=== PATIENT | male | born 1945 | race Caucasian/White ===

== ENCOUNTER 2024-04-04 10:55 | Observation (INO) ==
--- NOTE | 2024-04-04 11:07 | ED Physician Documentation ---
History of Present Illness Stated complaint Stated Complaint: SOA Chief complaint Chief Complaint: Resp Additonal information Additional information: 78-year-old male with history of pneumothorax, hernia repair presents with shortness of breath. He states he was feeling well until about 10:30 AM today when he abruptly developed left-sided chest tightness and shortness of breath, arriving with hypoxia to the mid 80s, placed on a nonrebreather and now satting mid 90s. He had no symptoms before this. No fevers, chills, back or flank or abdominal pain, leg swelling or leg pain. No anticoagulation. This feels somewhat similar to a distant pneumothorax. Spouse at bedside corroborating. Chest pain is improving. Review of Systems ROS Constitutional: no fever, no chills Eyes: no visual disturbance, no discharge Ears, Nose, Mouth, Throat: no rhinorrhea, no sore throat Cardiovascular: +chest pain, no palpitations Respiratory: no cough, +shortness of breath Gastrointestinal: no abdominal pain, no vomiting, no diarrhea Genitourinary: no dysuria, no hematuria Musculoskeletal: no back pain, no neck stiffness Skin: no rash, no wound Neurological: no focal weakness, no focal numbness Meds/Allgy Home Medications Ambulatory Orders Medication Instructions Recorded Confirmed cholecalciferol (vitamin D3) 1,250 50,000 units PO AC 08/30/15 04/04/24 mcg (50,000 unit) capsule glucosamine 467 mg-chondroitin msm 1 ea PO DAILY 09/02/15 04/04/24 no.6 438 mg-manganes 0.7 mg capsule vitamin E (dl, acetate) 450 mg 1,000 unit PO DAILY 09/02/15 04/04/24 (1,000 unit) capsule Allergies Allergies Allergy/AdvReac Type Severity Reaction Status Date / Time No Known Drug Allergies Allergy Verified 04/04/24 11:19 [facility] Medical History Medical History (Updated 04/04/24 @ 12:49 by Charles Santana MD) Left rib fracture Hx of pneumothorax Social History Social History Smoking Status: Former smoker If you are a former smoker, when did you quit? (Date/Year): 1971 How many cigarettes a day do you smoke? (20 cigarettes=1 Pk): 2 Do you dip or chew tobacco?: No Do you vape?: No Relationship: Spouse Level: Independent Do you feel safe in your home environment?: Yes Suffered physical, verbal, emotional, or financial abuse?: No ETOH Use: Beer Frequency: Daily Number of Amount/day: 6 Exam Exam Const: Dyspneic appearing with tachypnea to low 20s, non toxic appearing; calm, conversant, pleasant; able to speak in moderate sentences on nonrebreather Eyes: PERRLA, EOMI ENT: mucous membranes moist Neck: supple, non-tender Resp: tachypneic as above to low 20s, decreased breath sounds left side, clear to auscultation right side Card: regular rate and rhythm, no murmurs Abd: non tender diffusely, no rigidity or rebound or guarding Back: no T or L spine tenderness, no CVA tenderness bilaterally Extrem: no deformities, no swelling bilateral lower extremities Neuro: ANOx4, chainstitch pants outseamer grossly intact, grossly intact sensation and strength all extr emities Skin: no rash, warm and dry Results Vitals Vitals: Vital Signs - 24 hr 04/04/24 11:05 04/04/24 11:27 04/04/24 11:44 Temperature 36.0 C L Temperature Source Temporal Artery Scan Pulse Rate 120 H 117 H Respiratory Rate 42 H 22 20 Blood Pressure 181/108 H 170/102 H O2 Saturation 76 L 97 99 Oxygen Delivery Method O2 Source Room air Non-rebreather mask Room air If not protocol: Oxygen Flow, liters/minute 15 Pain Intensity 8 6 6 04/04/24 11:46 04/04/24 11:50 04/04/24 11:55 Temperature Temperature Source Pulse Rate 95 H Respiratory Rate 20 Blood Pressure 150/90 H O2 Saturation 100 Oxygen Delivery Method Non-Rebreather O2 Source Nasal cannula If not protocol: Oxygen Flow, liters/minute 15 Pain Intensity 0 10 04/04/24 12:47 04/04/24 13:00 04/04/24 13:07 Temperature Temperature Source Pulse Rate 90 96 H Respiratory Rate 20 16 Blood Pressure 160/85 H 144/83 H O2 Saturation 100 100 Oxygen Delivery Method O2 Source Nasal cannula Nasal cannula If not protocol: Oxygen Flow, liters/minute 2 2 Pain Intensity 0 0 0 04/04/24 13:30 04/04/24 14:00 Temperature Temperature Source Pulse Rate 89 70 Respiratory Rate 23 20 Blood Pressure 138/81 H 126/71 O2 Saturation 98 99 Oxygen Delivery Method O2 Source Nasal cannula Nasal cannula If not protocol: Oxygen Flow, liters/minute 2 2 Pain Intensity 2 0 Oxygen O2 Source Nasal cannula Labs Labs: Laboratory Tests 04/04/24 04/04/24 11:20 11:50 WBC 5.8 RBC 4.86 Hgb 16.4 Hct 49.0 MCV 100.8 H MCH 33.7 H MCHC 33.5 RDW 12.5 Plt Count 211 MPV 9.8 Neut # (Auto) 3.3 Lymph # (Auto) 1.6 [place] # (Auto) 0.7 Eos # (Auto) 0.1 Baso # (Auto) 0.1 Absolute Nucleated RBC 0.00 Nucleated RBC % 0.0 VBG pH 7.288 L VBG pCO2 59.1 H VBG pO2 46.0 VBG HCO3 27.7 VBG Total CO2 29.5 H VBG O2 Saturation 78.6 VBG Base Excess -0.6 Sodium 139 Potassium 3.9 Chloride 102 Carbon Dioxide 30 Anion Gap 7.0 BUN 15 Creatinine 0.9 Estimated GFR (MDRD) 82 L Glucose 186 H Calcium 9.2 Total Bilirubin 0.8 AST 48 H ALT 32 Alkaline Phosphatase 48 Troponin I High Sens 5.5 Total Protein 7.9 Albumin 4.2 Globulin 3.7 Albumin/Globulin Ratio 1.1 Lipase 37 Nasal Influenza B PCR NOT DETECTED Nasal Influenza A PCR NOT DETECTED Nasal RSV (PCR) NOT DETECTED Nasal SARS-CoV-2 (PCR) NOT DETECTED PD Medical Decision Making ED course ED course: This patients presentation is most suggestive of pneumothorax, though I have considered broad differential including not limited to pulmonary embolism, pneumonia, ACS, symptomatic anemia, among others. I am immediately obtaining chest x-ray, holding positive pressure pending this, will obtain EKG, CBC, CMP, troponin, viral swab and will closely reassess. EKG shows probable sinus tachycardia with poor baseline, though atrial fibrillation possible, without clear acute ischemia or immediately concerning interval prolongation. I suspect this is secondary to pneumothorax. Labs: VBG with respiratory acidosis. CBC grossly reassuring, no anemia or leukocytosis or thrombocytopenia. CMP with hyperglycemia, mild AST elevation without ALT or alk phos or bilirubin elevation, no abdominal pain or tenderness. Lipase reassuring. Troponin WNL. Imaging: I agree with radiology reads of imaging on my independent review of imaging. CXR: "FINDINGS: Surgical changes and devices: None. Lungs and pleura: Large left-sided pneumothorax. No pleural effusions. No consolidation. Mediastinum: Mediastinal contours appear normal. No significant mediastinal shift. Heart size is normal. Bones and chest wall: No suspicious bony lesions. Overlying soft tissues appear unremarkable. IMPRESSION: Large left-sided pneumothorax. Findings telephoned to Dr. Chakraborty on 04/04/2024 at 1205 hours. Reviewed by: Nicci Sadler MD, PhD on 04/04/2024 12:06 PM PST" --- PROCEDURE: Procedure Note: Chest Tube Insertion Indication: left pneumthorax Note patient verbally consented but requeste spouse also in room sign. Patient consented for procedure. Timeout performed at 1157. Patient given 50mcg IV fentanyl. The patient was placed in the appropriate position. Landmarks identified. Full sterile technique used. The area was prepped and draped in the usual sterile fashion. Anesthesia was obtained with 20mL of 1% lidocaine with epinephrine in a plane block, with no blood on aspiration prior to injection. A scalpel was used to make a skin incision. A trocar chest tube of roughly 10Fr was inserted with return of immediate air, with immediate symptom improvement. The chest tube was attached to an underwater seal apparatus and attached to negative pressure. The chest tube was sutured in place and secured with a dressing placed over the site. Tachycardia improved. NRB remains in place. Patient feels improvement in symptoms. The patient tolerated the procedure well. A CXR was ordered. --- Note fentanyl given for pain, not procedural sedation. Patient fully awake throughout procedure. Viral swab negative. Repeat CXR: clear improvement in L PTX with chest tube placed. I spoke with Dr. Santana, reviewing case; he kindly agrees to admit. CT pending. Patient stable, comfortable on admission, clearly improved. Additional radiology reads returned: CXR read by radiology: "FINDINGS: Surgical changes and devices: The left chest tube is present, with tip at the lateral lung border Lungs and pleura: Decreased left pneumothorax. Triangular opacity is seen in the left lower lobe. Mediastinum: Normal heart size Bones and chest wall: Left upper rib deformities, age indeterminate. IMPRESSION: Decreased left pneumothorax following chest tube placement. Triangular opacity in the left lower lobe may represent atelectasis or airspace disease. Consider future imaging surveillance to assess for resolution. Reviewed by: Pk Guerra MD on 04/04/2024 2:20 PM PST" CT chest without contrast: "FINDINGS: Image quality: Diagnostic. Chest wall and lower neck: No thyroid nodule which requires sonographic follow up. No axillary or supraclavicular adenopathy by size. Lungs and pleura: Status post left-sided chest tube placement. Small residual left-sided pneumothorax, improved compared to prior. Left lower lobe focal area of atelectasis or consolidation. Mild emphysematous changes, most pronounced within the lower lobes posteriorly. No pleural effusions. . Mediastinum: Heart size is normal. Severe coronary artery calcifications. No pericardial effusion. No large vessel abnormality. Atherosclerotic vascular calcifications. No mediastinal adenopathy by size criteria. Bones: No aggressive osseous abnormality. Upper Abdomen: Unremarkable. IMPRESSION: 1.Significant improvement in left-sided pneumothorax status post chest tube placement. There is small residual pneumothorax. 2.More focal area of atelectasis or consolidation within the left lower lobe, recommend follow-up CT chest in 3 months to assess for resolution and exclude underlying neoplasm. Reviewed by: Braulio Aaron MD on 04/04/2024 2:11 PM PST" CRITICAL CARE TIME: outside of procedures, I spent 50 minutes assessing, reassessing, resuscitating this patient, speaking with family and consultants, and interpreting studies and documentation, in the setting of large, symptomatic left pneumothorax. Discharge Plan Discharge Patient Disposition: 66 [facility] DC/Xfer Condition: Stable Clinical Impression: Pneumothorax Interventions: ED Admission Assessment Last Done: 04/04/24 14:30
[2024-04-04 11:26] LABS: VBG BASE EXCESS -0.6 mmol/L (-2 - +2); VBG HCO3 27.7 mmol/L (23-28); VBG OXYGEN SATURATION 78.6 % (60-80); VBG PCO2 59.1 mmHg (41-51); VBG PH 7.288 (7.31-7.41); VBG TOTAL CO2 29.5 mmol/L (24-29)
[2024-04-04 11:27] LABS: BASOPHILS # (AUTO) 0.1 10^3/uL (0.0-0.1); EOSINOPHILS # (AUTO) 0.1 10^3/uL (0.0-0.7); EOSINOPHILS % (AUTO) 1.7 %; HGB - HEMOGLOBIN 16.4 g/dL (14.0-18.0); LYMPHOCYTES # (AUTO) 1.6 10^3/uL (1.5-3.5); MEAN CORPUSCULAR HEMOGLOBIN 33.7 pg (27.0-31.0); MEAN CORPUSCULAR HGB CONC 33.5 g/dL (32.0-36.0); MEAN CORPUSCULAR VOLUME 100.8 fL (80.0-94.0); MEAN PLATELET VOLUME 9.8 fL (7.4-11.4); MONOCYTES # (AUTO) 0.7 10^3/uL (0.0-1.0); MONOCYTES % (AUTO) 11.9 %; NEUTROPHILS # (AUTO) 3.3 10^3/uL (1.5-6.6); NEUTROPHILS % (AUTO) 57.2 %; PLT - PLATELET COUNT 211 10^3/uL (130-450); RED BLOOD COUNT 4.86 10^6/uL (4.70-6.10); RED CELL DISTRIBUTION WIDTH 12.5 % (12.0-15.0); WHITE BLOOD COUNT 5.8 x10^3/uL (4.8-10.8)
[2024-04-04 11:40] LABS: ALBUMIN 4.2 g/dL (3.2-5.5); ALBUMIN/GLOBULIN RATIO 1.1 (1.0-2.2); BILIRUBIN,TOTAL 0.8 mg/dL (0.2-1.0); CALCIUM 9.2 mg/dL (8.5-10.3); CREATININE 0.9 mg/dL (0.6-1.3); POTASSIUM 3.9 mmol/L (3.5-4.5); TOTAL PROTEIN 7.9 g/dL (6.4-8.9)
[2024-04-04 11:46] LABS: TROPONIN I HIGH SENSITIVITY 5.5 ng/L (2.3-19.7)
[2024-04-04] MEDS ORDERED: fentaNYL 100 MCG/2 ML VIAL ONE (11:55)
[2024-04-04] MEDS: fentaNYL 100 MCG/2 ML VIAL IVP STA (11:55)
[2024-04-04] MEDS: LIDOCAINE 2%-EPI 1:100000 20 ML MDV SUBQ STA (12:00)
--- NOTE | 2024-04-04 12:08 | XRAY Report ---
PROCEDURE: XR Chest 1V INDICATIONS: Chest pain TECHNIQUE: One view of the chest was acquired. COMPARISON: None. FINDINGS: Surgical changes and devices: None. Lungs and pleura: Large left-sided pneumothorax. No pleural effusions. No consolidation. Mediastinum: Mediastinal contours appear normal. No significant mediastinal shift. Heart size is no rmal. Bones and chest wall: No suspicious bony lesions. Overlying soft tissues appear unremarkable. IMPRESSION: Large left-sided pneumothorax. Findings telephoned to Dr. Chakraborty on 04/04/2024 at 1205 hours. Reviewed by: Nicci Sadler MD, PhD on 04/04/2024 12:06 PM PST Approved by: Nicci Sadler MD, PhD on 04/04/2024 12:06 PM PST Station ID: [id number]
[2024-04-04 12:49] LABS: INFLUENZA A- RESP PCR PANEL NOT DETECTED; INFLUENZA B - RESP PCR PANEL NOT DETECTED; RSV- RESP PCR PANEL NOT DETECTED; SARS-CoV-2 -RESP PCR PANEL NOT DETECTED
--- NOTE | 2024-04-04 12:54 | HISTORY & PHYSICAL EXAMINATION ---
Chief Complaint Chief Complaint Chief Complaint: SOB History of Present Illness Admitted From Admitted From:: ED History Obtained From History obtained from: Patient History of Present Illness HPI Comment/Other: 78 male developed sudden onset of SOB and left chest pain around 0900 today while coughing in his home. He came to the ED and was found to have a large left pneumothorax on PE and CXR. A left pleural catheter was rapidly inserted by the ED staff with near complete resolution of his symptoms. I was aske to admit the patient for management of his chest tube. The patient denies emphysema or asthma. He suffered a left pneumothorax in the related to multiple left rib fractures. He tells me that he feels much better and his breathing has significantly improved after placemment of the chest catheter. Meds/Allgy Home Medications Ambulatory Orders Medication Instructions Recorded Confirmed cholecalciferol (vitamin D3) 1,250 50,000 units PO AC 08/30/15 09/02/15 mcg (50,000 unit) capsule glucosamine 467 mg-chondroitin msm 1 ea PO DAILY 09/02/15 09/02/15 no.6 438 mg-manganes 0.7 mg capsule vitamin E (dl, acetate) 450 mg 1,000 unit PO DAILY 09/02/15 09/02/15 (1,000 unit) capsule Allergies Allergies Allergy/AdvReac Type Severity Reaction Status Date / Time No Known Drug Allergies Allergy Verified 04/04/24 11:19 [facility] Medical History Medical History (Updated 04/04/24 @ 12:49 by Charles Santana MD) Left rib fracture Hx of pneumothorax Social History Social History Smoking Status: Unknown if ever smoked How many cigarettes a day do you smoke? (20 cigarettes=1 Pk): 2 Do you dip or chew tobacco?: Yes Relationship: Spouse Do you feel safe in your home environment?: Yes Suffered physical, verbal, emotional, or financial abuse?: No ETOH Use: Beer Frequency: Daily Number of Amount/day: 6 Review of Systems Cardiovascular Reports: shortness of breath with exertion Respiratory Reports: Shortness of breath, Cough and Pain on inspiration Prior Level of Functionality: Independent[place] Exam Constitutional normal general appearance and no apparent distress HENMT normocephalic, head/scalp atraumatic, hearing grossly normal bilaterally and oral mucous membranes normal Eyes PERRL, EOMs intact bilaterally, conjunctivae normal and no scleral icterus Neck/C-Spine visual inspection normal, trachea midline and thyroid normal Lymph no lymphadenopathy noted Chest inspection of chest normal There is a 14 F pleural catheter that enters the left lateral chest wall and is connected to a pleura-vac. There is no evidence of air leak on or off wall suction Respiratory breath sounds equal bilaterally, normal respiratory effort, clear to auscultation bilaterally and no wheezes Cardiovascular normal heart rate noted and regular rhythm noted Gastrointestinal abdomen normal to inspection, abdomen soft to palpation and nontender to palpation Genitourinary no CVA tenderness Uses a condom catheter and a leg bag Extremities normal to inspection Neurology no sensory deficits noted Psychiatry mental status grossly normal, oriented x3, thought process normal and cooperative Skin skin color normal and no rash Conclusion/Plan Problem List (1) Pneumothorax: Plan 1) Place in observation 2) Pleural catheter to wall suction 3) CT today to evaluate for blebs 4) Pain control as needed 5) General Diet 6) CXR in am Lab Results 04/04/24 11:20 04/04/24 11:20 Diagnostic Imaging Results Diagnostic Imaging Results: positive Final report reviewed Diagnostic Imaging Results Comments: CXR reviewed. Post procedure film pending
--- NOTE | 2024-04-04 14:13 | CT Report ---
PROCEDURE: CT Chest WO INDICATIONS: L PTX TECHNIQUE: A CT scan of the chest was performed. Intravenous contrast media was not administered. Images were re corded and evaluated at appropriate window settings. Reformats: axial MIP of the chest, coronal and s agittal. For radiation dose reduction, the following was used: automated exposure control, adjustment of mA and/or kV according to patient size. COMPARISON: Same day and chest x-ray. FINDINGS: Image quality: Diagnostic. Chest wall and lower neck: No thyroid nodule which requires sonographic follow up. No axillary or sup raclavicular adenopathy by size. Lungs and pleura: Status post left-sided chest tube placement. Small residual left-sided pneumothorax , improved compared to prior. Left lower lobe focal area of atelectasis or consolidation. Mild emphys ematous changes, most pronounced within the lower lobes posteriorly. No pleural effusions. . Mediastinum: Heart size is normal. Severe coronary artery calcifications. No pericardial effusion. No large vessel abnormality. Atherosclerotic vascular calcifications. No mediastinal adenopathy by size criteria. Bones: No aggressive osseous abnormality. Upper Abdomen: Unremarkable. IMPRESSION: 1.Significant improvement in left-sided pneumothorax status post chest tube placement. There is small residual pneumothorax. 2.More focal area of atelectasis or consolidation within the left lower lobe, recommend follow-up CT chest in 3 months to assess for resolution and exclude underlying neoplasm. Reviewed by: Braulio Aaron MD on 04/04/2024 2:11 PM PST Approved by: Braulio Aaron MD on 04/04/2024 2:11 PM PST Station ID: [id number]
--- NOTE | 2024-04-04 14:21 | XRAY Report ---
PROCEDURE: XR Chest for Line Placement INDICATIONS: L sided PTX post chest tube TECHNIQUE: One view of the chest was acquired. COMPARISON: Same-day chest radiograph FINDINGS: Surgical changes and devices: The left chest tube is present, with tip at the lateral lung border Lungs and pleura: Decreased left pneumothorax. Triangular opacity is seen in the left lower lobe. Mediastinum: Normal heart size Bones and chest wall: Left upper rib deformities, age indeterminate. IMPRESSION: Decreased left pneumothorax following chest tube placement. Triangular opacity in the left lower lobe may represent atelectasis or airspace disease. Consider future imaging surveillance to assess for resolution. Reviewed by: Pk Guerra MD on 04/04/2024 2:20 PM PST Approved by: Pk Guerra MD on 04/04/2024 2:20 PM PST Station ID: [id number]
[2024-04-04] MEDS ORDERED: SODIUM CHLORIDE FLUSH 0.9% 10 ML SYRINGE IVP PRN (14:37)
[2024-04-04] MEDS: LACTATED RINGERS 1,000 ML IV SCH (15:27)
[2024-04-04] MEDS: ACETAMINOPHEN 325 MG TABLET PO SCH (15:27)
[2024-04-04] MEDS: SODIUM CHLORIDE FLUSH 0.9% 10 ML SYRINGE IVP SCH (18:19)
[2024-04-04] MEDS: IBUPROFEN 600 MG TABLET PO SCH (18:42)
--- NOTE | 2024-04-05 08:05 | PROVIDER PROGRESS NOTE ---
Progress Note Progress Note Progress Note: General Surgery Progress Note S: No SOB or chest pain since admission. O: VSS afeb; Lungs clear bilaterally; Breath sounds normal on left Pleuravac without air leak on and off wall suction CXR - Tiny left apical pneumothorax CT - emphysematous changes both lungs A: Spontaneous left pneumothorax - no evidence of air leak; Left pneumothorax nearly completely resolved P: Switch from Pleuravac to Heimlich valve; CXR at noon. f no increase in pneumothorax, discharge to home with follow-up next week for removal of pleural catheter Charles Santana MD, FACS General Surgery Service
[2024-04-05 09:23] VITALS: BP 128/77; TEMP 98.4; O2SAT 97
--- NOTE | 2024-04-05 11:00 | PHARMACY PROGRESS NOTE ---
Best Possible Medication History Admit Date and Time: 04/04/24 [id number] Home Medications Medication Instructions Recorded Confirmed Type cholecalciferol (vitamin D3) 1,250 50,000 units PO AC 08/30/15 04/04/24 History mcg (50,000 unit) capsule vitamin E (dl, acetate) 450 mg 1,000 unit PO DAILY 09/02/15 04/04/24 History (1,000 unit) capsule glucosamine 500 mg-chondroit 400 1 cap PO DAILY 04/05/24 04/05/24 History mg-vit C 2 mg-jose 0.33 mg capsule Processed by: Pharmacy Medications reviewed in ED?: Yes Medication History completed: Yes Patient Interview: Completed Secondary Source(s): Pharmacy records and Insurance records [facility] Statement: As the person ultimately responsible for medication therapy, providers are able to order a medication from an existing home medication list in [facility] via the "Reconcile Routine" prior to Confirmation of that medication by clerical support specialist. Such practice is discouraged except when the physician, in their clinical judgment, deems that a medical need exists for a medication without regard to previous use.
--- NOTE | 2024-04-05 12:53 | PROVIDER PROGRESS NOTE ---
Progress Note Progress Note Progress Note: General Surgery Progress Note Patient without chest pain or SOB. 1200 CXR shows no pneumothorax. Pleural catheter in good position and Heimlich valve functional. Plan: Discharge to home with follow-up on for CXR at the hospital and then evaluation for pleural catheter removal in the office. Charles Santana MD, FACS General Surgery Service
--- NOTE | 2024-04-05 13:45 | XRAY Report ---
PROCEDURE: XR Chest 1V INDICATIONS: FU left pneumo now with pleural catheter TECHNIQUE: One view of the chest was acquired. COMPARISON: None FINDINGS: Surgical changes and devices: None. Lungs and pleura: Small left apical pneumothorax measures 7 mm to the thoracic apex, previously 11 m m. Pleural catheter in good position left hip. Old healed rib fracture present. Right lung and pleura l space clear. Mediastinum: Mediastinal contours appear normal. Heart size is normal. Bones and chest wall: No suspicious bony lesions. Overlying soft tissues appear unremarkable. IMPRESSION: Improving left apical pneumothorax. Pleural drain in place. Reviewed by: Trevor Nunez MD on 04/05/2024 12:44 PM [place] Approved by: Trevor Nunez MD on 04/05/2024 12:44 PM [facility] Station ID: [id number]
--- NOTE | 2024-04-05 14:03 | XRAY Report ---
No priors 04/05/2024 PROCEDURE: XR Chest 1V INDICATIONS: FU left pneumo - Heimlich valve since 0800 TECHNIQUE: One view of the chest was acquired, less lordotic than the most recent prior. COMPARISON: 04/05/2024 at 0622 hours FINDINGS: Surgical changes and devices: Pleural drain in place Lungs and pleura: Left apical pneumothorax has increased in size now measuring 2 cm, previously 0.7 cm Mediastinum: Mediastinal contours appear normal. Heart size is normal. Bones and chest wall: No suspicious bony lesions. Overlying soft tissues appear unremarkable. IMPRESSION: Left apical pneumothorax is slightly increased in size, may related to difference in projection Reviewed by: Trevor Nunez MD on 04/05/2024 1:01 PM [facility] Approved by: Trevor Nunez MD on 04/05/2024 1:01 PM [facility] Station ID: [id number]
== END 2024-04-05 13:40 | disposition home or self-care (01) ==
LOC: ED 10:55 → MS3 10:55
PROVIDERS: ADMIT Surgery; ATTEND Surgery
DX: J93.83 Other pneumothorax; F17.220 Nicotine dependence, chewing tobacco, uncomplicated

== ENCOUNTER 2024-06-08 10:57 | Observation (INO) ==
[2024-06-08 11:26] LABS: BASOPHILS # (AUTO) 0.1 10^3/uL (0.0-0.1); BASOPHILS % (AUTO) 1.1 %; EOSINOPHILS # (AUTO) 0.1 10^3/uL (0.0-0.7); EOSINOPHILS % (AUTO) 1.9 %; HCT - HEMATOCRIT 48.6 % (42.0-52.0); HGB - HEMOGLOBIN 16.3 g/dL (14.0-18.0); LYMPHOCYTES # (AUTO) 1.5 10^3/uL (1.5-3.5); LYMPHOCYTES % (AUTO) 32.6 %; MEAN CORPUSCULAR HEMOGLOBIN 34.1 pg (27.0-31.0); MEAN CORPUSCULAR HGB CONC 33.5 g/dL (32.0-36.0); MEAN CORPUSCULAR VOLUME 101.7 fL (80.0-94.0); MEAN PLATELET VOLUME 9.5 fL (7.4-11.4); MONOCYTES # (AUTO) 0.5 10^3/uL (0.0-1.0); MONOCYTES % (AUTO) 11.2 %; NEUTROPHILS # (AUTO) 2.5 10^3/uL (1.5-6.6); NEUTROPHILS % (AUTO) 52.8 %; PLT - PLATELET COUNT 219 10^3/uL (130-450); RED BLOOD COUNT 4.78 10^6/uL (4.70-6.10); RED CELL DISTRIBUTION WIDTH 12.6 % (12.0-15.0); WHITE BLOOD COUNT 4.7 x10^3/uL (4.8-10.8)
--- NOTE | 2024-06-08 11:26 | ED Physician Documentation ---
PD HPI DYSPNEA Stated complaint Stated Complaint: SOA Chief complaint Chief Complaint: Resp History obtained from History obtained from: Patient and Family History of Present Illness Timing - onset: How many minutes ago (30) Timing - onset during: Rest (sitting in a chair) Timing - details: Abrupt onset and Still present Inciting event(s): No URI Improved by: Other (came immediately here by . arrived to triage cyanotic and tripod breathing. ) Associated symptoms: No Fever, Cough or Hemoptysis Similar symptoms before: Diagnosis (spontaneous PTX Mar 2024. ) Recently seen: Emergency Dept and Admitted Meds/Allgy Home Medications Ambulatory Orders Medication Instructions Recorded Confirmed vitamin E (dl, acetate) 450 mg 1,000 unit PO DAILY 09/02/15 06/08/24 (1,000 unit) capsule glucosamine 500 mg-chondroit 400 1 cap PO DAILY 04/05/24 06/08/24 mg-vit C 2 mg-jose 0.33 mg capsule acetaminophen 325 mg tablet 650 mg PO Q4HR PRN fever or pain 06/08/24 06/08/24 cholecalciferol (vitamin D3) 125 5,000 unit PO DAILY 06/08/24 06/08/24 mcg (5,000 unit) capsule multivitamin 1 tab PO DAILY 06/08/24 06/08/24 Allergies Allergies Allergy/AdvReac Type Severity Reaction Status Date / Time No Known Drug Allergies Allergy Verified 04/04/24 11:19 [facility] Medical History Medical History Hx of pneumothorax (~04/05/24) LEFT, March 2024 Surgical History Surgical History H/O left inguinal hernia repair Social History Social History Smoking Status: Former smoker If you are a former smoker, when did you quit? (Date/Year): 2024 How many cigarettes a day do you smoke? (20 cigarettes=1 Pk): 2 Do you dip or chew tobacco?: No Do you vape?: No Relationship: Level: Independent Do you feel safe in your home environment?: Yes Suffered physical, verbal, emotional, or financial abuse?: No ETOH Use: Beer Frequency: Daily Number of Amount/day: 6 Exam Constitutional normal general appearance, distress noted (severe) and abnormal body habitus (thin) and (underweight) Lymph no lymphadenopathy noted Respiratory breath sounds unequal (notably diminished left side. ), abnormal respiratory effort (labored), retractions noted and chest percussion abnormal (hyperresonant on left side. ) Cardiovascular normal heart rate noted, regular rhythm noted and no edema Extremities no tenderness and full ROM Neurology no focal motor deficit noted and no sensory deficits noted Psychiatry mental status grossly normal and thought process normal Skin skin color abnormal (cyanosis) and skin turgor abnormal (tenting) Results Vitals Vitals: Vital Signs - 24 hr 06/08/24 11:10 06/08/24 11:25 06/08/24 11:36 Temperature 35.8 C L Temperature Source Temporal Artery Scan Pulse Rate 128 H 113 H 112 H Respiratory Rate 36 H 29 H 26 H Blood Pressure 158/115 H 167/111 H 167/111 H O2 Saturation 72 L 92 95 O2 Source Room air HHFNC HHFNC If not protocol: Oxygen Flow, liters/minute 15 15 Pain Intensity 2 06/08/24 12:05 06/08/24 12:16 06/08/24 12:21 Temperature Temperature Source Pulse Rate Respiratory Rate Blood Pressure O2 Saturation O2 Source If not protocol: Oxygen Flow, liters/minute Pain Intensity 0 10 10 06/08/24 12:22 06/08/24 12:30 06/08/24 13:00 Temperature 36.6 C Temperature Source Tympanic Pulse Rate 90 92 80 Respiratory Rate 14 15 16 Blood Pressure 144/89 H 144/89 H 160/90 H O2 Saturation 98 97 99 O2 Source HHFNC HHFNC HHFNC If not protocol: Oxygen Flow, liters/minute 10 Pain Intensity 2 2 0 06/08/24 13:30 Temperature Temperature Source Pulse Rate 78 Respiratory Rate 18 Blood Pressure 150/88 H O2 Saturation 99 O2 Source HHFNC If not protocol: Oxygen Flow, liters/minute 10 Pain Intensity 0 Oxygen O2 Source HHFNC Labs Labs: Laboratory Tests 06/08/24 11:20 WBC 4.7 L RBC 4.78 Hgb 16.3 Hct 48.6 MCV 101.7 H MCH 34.1 H MCHC 33.5 RDW 12.6 Plt Count 219 MPV 9.5 Neut # (Auto) 2.5 Lymph # (Auto) 1.5 [place] # (Auto) 0.5 Eos # (Auto) 0.1 Baso # (Auto) 0.1 Absolute Nucleated RBC 0.00 Nucleated RBC % 0.0 Sodium 143 Potassium 4.3 Chloride 105 Carbon Dioxide 28 Anion Gap 10.0 BUN 11 Creatinine 0.8 Estimated GFR (MDRD) 93 Glucose 132 H Calcium 9.7 Total Bilirubin 0.8 AST 35 ALT 20 Alkaline Phosphatase 49 Troponin I High Sens 5.0 Total Protein 7.7 Albumin 4.4 Globulin 3.3 Albumin/Globulin Ratio 1.3 Lipase 29 Procedures Chest Tube (location) - Major left 5th middle axillary line: Chest tube preparation: Consent obtained Chest tube location: Left Chest tube anesthesia: Lidocaine Chest tube size: 7 Chest tube return: Air and Connected to suction Chest tube after care: Sutured, Confirmed with xray and Pt tolerated well (he had few minutes of severe pleuritic left chest pain with re-expansion just after chest tube placement. This improved with some more IV meds. ) PD Medical Decision Making ED course Complexity details: reviewed old records (pt with admission for spontaneous PTX March 2024, treated with chest tube and discharged few days later. Had CT chest at the time without tumors/CA/etc. No blebs. ), reviewed results (initial CXR with significant PTX. Repeat showing near full expansion of lung with chest tube. ), considered differential (patient with dyspnea, hypoxia, decreased breath sounds left and history of left PTX 2 months ago. Presumption of PTX, though could consider large PE, GA/CHF. Prompt CXR portable while initiating IV/meds and prepping chest tube setup confirmed PTX. ), d/w patient, d/w family and d/w process improvement consultant (Dr. Mills, bonding machine setter surgery, who came to ED to see the pateint. ) ED course: Patient with signficant labored breathing, low sats RA but adequate at 93-94% on high flow NC. Confirmed consent for chest tube from pt/. Set up for it while getting initial CXR. Pt given IV fentanyl and IV fluids. Left lateral chest tube successfully placed with good re-expansion of lung. Pt feeling improved afterward once re-expansion pleurisy pain lessened. Critical Care Critical Care Provided: Yes Time(min): 50 Time Includes: Direct patient care, Review records, Reassess patient, Document care and Medical consult Data interpretation: Labs, Pulse ox and CXR Procedures excluded from critical care time: Chest tube Discharge Plan Discharge Patient Disposition: ED Place in Observation Condition: Stable Clinical Impression: Recurrent spontaneous pneumothorax, Dyspnea Interventions: ED Admission Assessment Last Done: 06/08/24 14:17
[2024-06-08 11:45] LABS: ALBUMIN 4.4 g/dL (3.2-5.5); ALBUMIN/GLOBULIN RATIO 1.3 (1.0-2.2); BILIRUBIN,TOTAL 0.8 mg/dL (0.2-1.0); CALCIUM 9.7 mg/dL (8.5-10.3); CREATININE 0.8 mg/dL (0.6-1.3); POTASSIUM 4.3 mmol/L (3.5-4.5); TOTAL PROTEIN 7.7 g/dL (6.4-8.9)
--- NOTE | 2024-06-08 12:02 | XRAY Report ---
PROCEDURE: XR Chest 1V INDICATIONS: shortness of breath TECHNIQUE: One view of the chest was acquired. COMPARISON: None. FINDINGS: Surgical changes and devices: Tube is present overlying the left apex. Recommend correlation to ches t tube or overlying potential oxygen tubing. Lungs and pleura: Large left pneumothorax measuring approximately 10.4 cm no midline shift. Similar changes are present. Mediastinum: Mediastinal contours appear normal. Heart size is normal. Bones and chest wall: No suspicious bony lesions. Overlying soft tissues appear unremarkable. IMPRESSION: Large left pneumothorax without midline shift. The above findings were discussed with Dr. Segundo Dumont on 06/08/2024 at 11:57 PM. Reviewed by: Stacey Bardales MD on 06/08/2024 12:00 PM PST Approved by: Stacey Bardales MD on 06/08/2024 12:00 PM PST Station ID: [id number]
[2024-06-08] MEDS: fentaNYL 100 MCG/2 ML VIAL IVP STA (12:05)
[2024-06-08] MEDS: SODIUM CHLORIDE 0.9% 1,000 ML IV STA (12:06)
[2024-06-08] MEDS ORDERED: HYDROmorphone 1 MG/ML CARPUJECT ONE (12:15)
[2024-06-08] MEDS: HYDROmorphone 1 MG/ML CARPUJECT IVP STA (12:16)
--- NOTE | 2024-06-08 13:03 | XRAY Report ---
PROCEDURE: XR Chest for Line Placement INDICATIONS: S/p Chest tube placement TECHNIQUE: One view of the chest was acquired. COMPARISON: Chest x-ray 06/08/2024 FINDINGS: Surgical changes and devices: Interval chest tube placement overlying the medial aspect of the mid l eft lung. Lungs and pleura: Near complete interval resolution of left pneumothorax. Mediastinum: Mediastinal contours appear normal. Heart size is normal. Bones and chest wall: No suspicious bony lesions. Overlying soft tissues appear unremarkable. IMPRESSION: Left chest tube with near complete interval resolution of previous pneumothorax. Reviewed by: Stacey Bardales MD on 06/08/2024 1:01 PM PST Approved by: Stacey Bardales MD on 06/08/2024 1:01 PM PST Station ID: [id number]
[2024-06-08] MEDS ORDERED: HYDROmorphone 0.5 MG/0.5 ML SYRINGE IVP PRN (13:33)
[2024-06-08] MEDS ORDERED: SODIUM CHLORIDE FLUSH 0.9% 10 ML SYRINGE IVP PRN (13:33)
[2024-06-08] MEDS ORDERED: ONDANSETRON 4 MG/2 ML VIAL IVP PRN (13:33)
[2024-06-08] MEDS ORDERED: ONDANSETRON ODT 4 MG TABLET TL PRN (13:33)
[2024-06-08] MEDS ORDERED: oxyCODONE 5 MG TABLET PO PRN (13:33)
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
--- NOTE | 2024-06-08 15:00 | PHARMACY PROGRESS NOTE ---
Best Possible Medication History Admit Date and Time: 06/08/24 [id number] Home Medications Medication Instructions Recorded Confirmed Type vitamin E (dl, acetate) 450 mg 1,000 unit PO DAILY 09/02/15 06/08/24 History (1,000 unit) capsule glucosamine 500 mg-chondroit 400 1 cap PO DAILY 04/05/24 06/08/24 History mg-vit C 2 mg-jose 0.33 mg capsule acetaminophen 325 mg tablet 650 mg PO Q4HR PRN fever or pain 06/08/24 06/08/24 History cholecalciferol (vitamin D3) 125 5,000 unit PO DAILY 06/08/24 06/08/24 History mcg (5,000 unit) capsule multivitamin 1 tab PO DAILY 06/08/24 06/08/24 History Processed by: Pharmacy Medications reviewed in ED?: No Medication History completed: Yes Patient Interview: Pt interview ONLY source [facility] Statement: As the person ultimately responsible for medication therapy, providers are able to order a medication from an existing home medication list in [facility] via the "Reconcile Routine" prior to Confirmation of that medication by dealer support technician. Such practice is discouraged except when the physician, in their clinical judgment, deems that a medical need exists for a medication without regard to previous use.
[2024-06-08] MEDS: ACETAMINOPHEN 325 MG TABLET PO SCH (17:14)
[2024-06-08] MEDS: SODIUM CHLORIDE FLUSH 0.9% 10 ML SYRINGE IVP SCH (17:15)
[2024-06-09] MEDS: ACETAMINOPHEN 325 MG TABLET PO SCH (08:40)
[2024-06-09] MEDS: polyethylene glycoL 3350 17 GM PACKET PO SCH (08:40)
--- NOTE | 2024-06-09 09:04 | XRAY Report ---
PROCEDURE: XR Chest 1V INDICATIONS: pneumothorax, eval for resolution TECHNIQUE: One view of the chest was acquired. COMPARISON: None. FINDINGS: Surgical changes and devices: Left-sided chest tube is seen, the tip is projecting over aortic arch. . Lungs and pleura: Suggestion of trace residual left apical pneumothorax. No pleural effusion. No foc al infiltrate. Mediastinum: Mediastinal contours appear normal. Heart size is normal. Bones and chest wall: No suspicious bony lesions. Overlying soft tissues appear unremarkable. IMPRESSION: Possible trace residual left apical pneumothorax. Left chest tube in place. No pleural effusion. No r ight-sided pneumothorax. Reviewed by: Mateo Hall MD on 06/09/2024 9:03 AM [facility] Approved by: Mateo Hall MD on 06/09/2024 9:03 AM [facility] Station ID: [id number]
[2024-06-09 12:23] VITALS: BP 138/74; TEMP 98.2; O2SAT 95
--- NOTE | 2024-06-09 15:08 | Discharge Summary ---
"Discharge Summary Admit Date: 06/08/24 Discharge Date: 06/09/24 Discharging Provider: edgar coleman Code Status: Attempt Resuscitation Discharge Facility Name: [facility] DIAGNOSES Admission Diagnoses: recurrent left pneumothorax Discharge Diagnoses with Status of Each Condition: pneumothorax and air leak quicky resolved. HPI History of Present Illness: recurrent pneumothorax. patient went home with a chest tube with valve a few months ago. he feels more comfortable going home with a chest tube again rather than having it pulled out today. CONSULTS | PROCEDURES Procedures: chest tube placement HOSPITAL COURSE Hospital Course: as above. pneumothorax and air leak quickly resolved. home next day with chest tube with valve ALLERGIES Allergies Allergy/AdvReac Type Severity Reaction Status Date / Time No Known Drug Allergies Allergy Verified 04/04/24 11:19 MEDICATIONS Ambulatory Orders Medication Instructions Recorded Confirmed vitamin E (dl, acetate) 450 mg 1,000 unit PO DAILY 09/02/15 06/08/24 (1,000 unit) capsule glucosamine 500 mg-chondroit 400 1 cap PO DAILY 04/05/24 06/08/24 mg-vit C 2 mg-jose 0.33 mg capsule acetaminophen 325 mg tablet 650 mg PO Q4HR PRN fever or pain 06/08/24 06/08/24 cholecalciferol (vitamin D3) 125 5,000 unit PO DAILY 06/08/24 06/08/24 mcg (5,000 unit) capsule multivitamin 1 tab PO DAILY 06/08/24 06/08/24 PHYSICAL EXAM AT DISCHARGE General Appearance: positive No acute distress and Alert Eyes Bilateral: positive Normal inspection and PERRL Respiratory: positive No respiratory distress and Other (no air leak. good respiratory effort) Neurologic/Psychiatric: positive Oriented x3 and Mood/affect nml LABS 06/08/24 11:20 06/08/24 11:20 DIAGNOSTIC IMAGING Diagnostic Imaging Results: Read independently Discharge Plan Discharge Patient Disposition: Home, Self Care Condition: Stable Prescriptions: Continued vitamin E (dl, acetate) 1,000 UNIT capsule 1,000 unit PO DAILY [id number] 500-400-2-0.33 mg capsule 1 cap PO DAILY cholecalciferol (vitamin D3) 125 mcg (5,000 unit) capsule 5,000 unit PO DAILY acetaminophen 325 mg Tablet 650 mg PO Q4HR PRN (Reason: fever or pain) multivitamin Tablet 1 tab PO DAILY Activity Restrictions/Additional Instructions: no flying for 6 weeks Diet: Regular Health Concerns: recurrent pneumothorax Care Plan Goals: home with chest tube Assessment: doing well after chest tube placement. he is comfortable with chest tube care Plan of Treatment: follow up in surgery office for chest tube removal Print Language: Czech Patient Instructions: Pneumothorax Stand Alone Forms: PCP List Follow-up Care: Lalo Coleman MD [Provider Admit Priv/Credential] - (call the office to make an appointment)"
== END 2024-06-09 16:32 | disposition home or self-care (01) ==
LOC: MS2 10:57 → ED 10:57 → MS2 14:18
PROVIDERS: ADMIT Surgery; ATTEND Surgery

== ENCOUNTER 2024-10-14 14:30 | Inpatient (IN) ==
--- NOTE | 2024-10-14 14:44 | ED Physician Documentation ---
History of Present Illness Stated complaint Stated Complaint: SOA Chief complaint Chief Complaint: Resp History obtained from History obtained from: Patient History of Present Illness Pain level max: 5 Pain level now: 5 Additonal information Additional information: Patient is a 79-year-old male who presents to the emergency department with shortness of breath that onset today. Has a history of 2 left-sided pneumothoraces in the past 6 months. He states this feels similar. No cough or congestion. 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 He states he no longer smokes. He states that he is seeing cardiothoracic surgery at [facility] in [place] but was told that treatment for this would be elective at this point. Review of Systems Constitutional Denies: Fever or Chills Respiratory Denies: Cough Gastrointestinal Denies: Vomiting Meds/Allgy Home Medications Ambulatory Orders Medication Instructions Recorded Confirmed vitamin E (dl, acetate) 450 mg 1,000 unit PO DAILY 01/0906/12/24 (1,000 unit) capsule glucosamine 500 mg-chondroit 400 1 cap PO DAILY 06/12/24 mg-vit C 2 mg-jose 0.33 mg capsule cholecalciferol (vitamin D3) 125 5,000 unit PO DAILY 0 06/08/24 06/12/24 mcg (5,000 unit) capsule multivitamin 1 tab PO DAILY 06/08/2405/27 Allergies Allergies Allergy/AdvReac Type Severity Reaction Status Date / Time No Known Drug Allergies Allergy Verified 10/14/24 14:47 PFSH Active Problems All Active Problems (Updated 10/14/24 @ 15:11 by Esteban Baker MD) Recurrent spontaneous pneumothorax (Acute) Consolidation of left lower lobe of lung (Acute) Medical History Medical History Hx of pneumothorax (~04/05/24) LEFT, March 2024 Surgical History Surgical History H/O left inguinal hernia repair Social History Social History (Updated 06/12/24 @ 09:44 by Favian Velazco RN) Smoking Status: Former smoker If you are a former smoker, when did you quit? (Date/Year): 2024 How many cigarettes a day do you smoke? (20 cigarettes=1 Pk): 2 Do you dip or chew tobacco?: No Do you vape?: No Living arrangement: At home Relationship: Level: Independent Do you feel safe in your home environment?: Yes Suffered physical, verbal, emotional, or financial abuse?: No History of Abuse: No ETOH Use: Beer Frequency: Daily Number of Amount/day: 6 Substance Use: denies use POLST Patient has POLST: No Exam Exam Vital Signs: Vital Signs x48h Temp Pulse Resp BP Pulse Ox O2 Flow Rate 10/14/24 15:16 89 20 137/92 H 100 8 10/14/24 15:01 96 22 163/110 H 100 15 10/14/24 14:50 15 10/14/24 14:50 116 H 30 H 163/110 H 95 15 10/14/24 14:47 36.1 C L 106 H 30 H 198/123 H 96 15 Constitutional appears uncomfortable HENMT normocephalic, head/scalp atraumatic and oropharynx normal Eyes PERRL Neck/C-Spine trachea midline Respiratory Tachypnea, absent breath sounds on the left Cardiovascular normal heart rate noted and regular rhythm noted Gastrointestinal abdomen normal to inspection and abdomen soft to palpation Neurology GCS 15 Psychiatry mental status grossly normal and oriented x3 Skin skin color normal Results Vitals Vitals: Vital Signs - 24 hr 10/14/24 14:47 10/14/24 14:50 10/14/24 14:50 Temperature 36.1 C L Temperature Source Temporal Artery Scan Pulse Rate 106 H 116 H Respiratory Rate 30 H 30 H Blood Pressure 198/123 H 163/110 H O2 Saturation 96 95 Oxygen Delivery Method Non-Rebreather O2 Source Non-rebreather mask Simple Mask If not protocol: Oxygen Flow, liters/minute 15 15 15 Pain Intensity 0 10/14/24 15:01 10/14/24 15:16 10/14/24 15:35 Temperature Temperature Source Pulse Rate 96 89 Respiratory Rate 22 20 Blood Pressure 163/110 H 137/92 H O2 Saturation 100 100 Oxygen Delivery Method O2 Source Simple Mask Simple Mask If not protocol: Oxygen Flow, liters/minute 15 8 Pain Intensity 8 0 Oxygen O2 Source Simple Mask EKG (time done) 1435: EKG releavant findings:: EKG personally interpreted by author of this note. Relevant findings are: Rate: Other (1 to 3 bpm. Atrial fibrillation. Normal QRS. Normal axis. No ST changes. limited interp 2/2 artifact) Labs Labs: Laboratory Tests 10/14/24 14:36 WBC 9.9 RBC 4.90 Hgb 16.5 Hct 50.4 MCV 102.9 H MCH 33.7 H MCHC 32.7 RDW 12.6 Plt Count 191 MPV 9.6 Neut # (Auto) 6.7 H Lymph # (Auto) 2.0 [place] # (Auto) 1.1 H Eos # (Auto) 0.1 Baso # (Auto) 0.1 Absolute Nucleated RBC 0.00 Nucleated RBC % 0.0 Sodium 142 Potassium 3.6 Chloride 105 Carbon Dioxide 27 Anion Gap 10.0 BUN 13 Creatinine 0.7 Estimated GFR (MDRD) 109 Glucose 120 H Calcium 9.2 Total Bilirubin 1.0 AST 35 ALT 25 Alkaline Phosphatase 44 Troponin I High Sens 5.9 Total Protein 7.1 Albumin 4.3 Globulin 2.8 Albumin/Globulin Ratio 1.5 Lipase 35 Rads (name of study) Chest x-ray: Relevant Findings:: Final report received Chest x-ray after line placement: Relevant Findings:: Final report received Procedures Chest Tube (location) - Major left other other: Chest tube preparation: Consent obtained (Verbal consent obtained due to respiratory distress), Time out completed and Sterile prep and drape Chest tube location: Left, Intercostal space - enter (Third) and Other (Anterior chest, mid to lateral clavicular) Chest tube anesthesia: Lidocaine and CC (enter) (3) Chest tube size: 16 Chest tube return: Air and Connected to suction Chest tube after care: Confirmed with xray, Pt tolerated well and Other (Pneumothorax kit was used) PD Medical Decision Making ED course Complexity details: reviewed results, re-evaluated patient, considered differential, d/w patient and d/w makeup sales consultant ED course: Patient is a 79-year-old male who presents to the emergency department with a recurrent spontaneous pneumothorax. Pneumothorax is on the left side. Due to respiratory distress, was placed on the nonrebreather with 100% oxygen. Chest x-ray confirms the pneumothorax. Verbal consent obtained and an anterior chest tube was placed. Tolerated well. Immediate relief of symptoms. Heart rate decreased, blood pressure decreased and respiratory rate decreased back to normal. Discussed with patient transfer for cardiothoracic surgery. Patient states that his is having kidney problems and he request not to go to [facility] at this time. He prefers to be admitted here for the pneumothorax treated conservatively and to continue follow-up as an outpatient with cardiothoracic surgery. He does confirm that he did recently meet with him. Discussed with Dr. Coleman, surgery who accepts. This document was made in part using voice recognition software. While efforts are made to proofread this document, sound alike and grammatical errors may occur. Critical Care Critical Care Provided: Yes Time(min): 30 Time Includes: Direct patient care, Review records, Reassess patient, Document care, Coordinate care and See progress note Data interpretation: See progress note Procedures included in critical care time: See progress note Procedures excluded from critical care time: Chest tube and See progress note Discharge Plan Discharge Patient Disposition: [facility] DC/Xfer Clinical Impression: Recurrent spontaneous pneumothorax
[2024-10-14 14:47] LABS: BASOPHILS # (AUTO) 0.1 10^3/uL (0.0-0.1); BASOPHILS % (AUTO) 0.8 %; EOSINOPHILS # (AUTO) 0.1 10^3/uL (0.0-0.7); EOSINOPHILS % (AUTO) 0.5 %; HCT - HEMATOCRIT 50.4 % (42.0-52.0); HGB - HEMOGLOBIN 16.5 g/dL (14.0-18.0); LYMPHOCYTES % (AUTO) 20.4 %; MEAN CORPUSCULAR HEMOGLOBIN 33.7 pg (27.0-31.0); MEAN CORPUSCULAR HGB CONC 32.7 g/dL (32.0-36.0); MEAN CORPUSCULAR VOLUME 102.9 fL (80.0-94.0); MEAN PLATELET VOLUME 9.6 fL (7.4-11.4); MONOCYTES # (AUTO) 1.1 10^3/uL (0.0-1.0); MONOCYTES % (AUTO) 10.6 %; NEUTROPHILS # (AUTO) 6.7 10^3/uL (1.5-6.6); NEUTROPHILS % (AUTO) 67.5 %; PLT - PLATELET COUNT 191 10^3/uL (130-450); RED CELL DISTRIBUTION WIDTH 12.6 % (12.0-15.0); WHITE BLOOD COUNT 9.9 x10^3/uL (4.8-10.8)
--- OUTSIDE RECORDS SUMMARY | 2024-10-14 15:03 | EXTERNAL MEDICAL SUMMARY RPT | Continuity of Care Document ---
Author Organization [facility] Address [address] [place] [id number] Phone Problems date description facility 2024-07-14 16:30 Lobar pneumonia, unspecified or ganism [facility] 2024-07-14 16:31 Lobar pneumonia, unspecified or ganism [facility] 2024-07-17 08:48 Lobar pneumonia, unspecified or ganism [facility] 2024-07-18 00:02 Lobar pneumonia, unspecified or ganism [facility] Social History date description facility
[2024-10-14 15:08] LABS: ALBUMIN 4.3 g/dL (3.2-5.5); ALBUMIN/GLOBULIN RATIO 1.5 (1.0-2.2); CALCIUM 9.2 mg/dL (8.5-10.3); CREATININE 0.7 mg/dL (0.6-1.3); POTASSIUM 3.6 mmol/L (3.5-4.5); TOTAL PROTEIN 7.1 g/dL (6.4-8.9); TROPONIN I HIGH SENSITIVITY 5.9 ng/L (2.3-19.7)
--- NOTE | 2024-10-14 15:09 | XRAY Report ---
PROCEDURE: XR Chest 1V INDICATIONS: Chest pain TECHNIQUE: One view of the chest was acquired. COMPARISON: None. FINDINGS: Surgical changes and devices: None. Lungs and pleura: There is a large left pneumothorax with near complete collapse of the left lung. The right lung is normally inflated and clear without consolidation or effusion. Mediastinum: Mediastinal contours appear normal. Heart size is normal. Bones and chest wall: No suspicious bony lesions. Overlying soft tissues appear unremarkable. IMPRESSION: Left pneumothorax with near complete collapse of the left lung. The ordering provider was not notified of this result as the plan for chest tube placement is already documented. Reviewed by: Monse Roberts MD on 10/14/2024 2:08 PM AKMONIQUE Approved by: Monse Roberts MD on 10/14/2024 2:08 PM AKMONIQUE Station ID: [id number]
[2024-10-14] MEDS: MORPHINE 2 MG/ML CARPUJECT IVP STA (15:32)
[2024-10-14] MEDS ORDERED: oxyCODONE 5 MG TABLET PO PRN (15:47)
[2024-10-14] MEDS ORDERED: ZOLPIDEM 5 MG TABLET PO PRN (15:47)
[2024-10-14] MEDS ORDERED: SODIUM CHLORIDE FLUSH 0.9% 10 ML SYRINGE IVP PRN (15:47)
[2024-10-14] MEDS ORDERED: ACETAMINOPHEN 325 MG TABLET PO PRN (15:47)
--- NOTE | 2024-10-14 15:48 | XRAY Report ---
PROCEDURE: XR Chest 1V INDICATIONS: post chest pegtail TECHNIQUE: One view of the chest was acquired. COMPARISON: Same day chest radiograph.. FINDINGS: Surgical changes and devices: There is been interval placement of a left thoracic smallbore chest tube at the lateral mid thorax. Lungs and pleura: There is no significant residual pneumothorax. Mild residual left basilar atelectasis. Mediastinum: Mediastinal contours appear normal. Heart size is normal. Bones and chest wall: No suspicious bony lesions. Overlying soft tissues appear unremarkable. IMPRESSION: No significant residual left pneumothorax status post chest tube placement. Reviewed by: Monse Roberts MD on 10/14/2024 2:47 PM AKDT Approved by: Monse Roberts MD on 10/14/2024 2:47 PM AKDT Station ID: [id number]
--- NOTE | 2024-10-14 15:54 | HISTORY & PHYSICAL EXAMINATION ---
Chief Complaint Chief Complaint Chief Complaint: shortness of breath History of Present Illness Admitted From Admitted From:: ed History Obtained From Records Reviewed: yes History obtained from: pt and ED MD Exam Limitations: none History of Present Illness HPI Comment/Other: recurrent ptx. third or 4 th time in 7 months. he has seen [facility] thoracic surgery. has not had surgery . chest tube placed per ED. complaint of mild ct pain Colonoscopy Questionnaire In the last 30 days have you experienced these symptoms? PFSH Active Problems All Active Problems (Updated 10/14/24 @ 15:11 by Esteban Baker MD) Recurrent spontaneous pneumothorax (Acute) Consolidation of left lower lobe of lung (Acute) Medical History Medical History Hx of pneumothorax (~04/05/24) LEFT, March 2024 Surgical History Surgical History H/O left inguinal hernia repair Social History Social History (Updated 06/12/24 @ 09:44 by Favian Velazco RN) Smoking Status: Former smoker If you are a former smoker, when did you quit? (Date/Year): 2024 How many cigarettes a day do you smoke? (20 cigarettes=1 Pk): 2 Do you dip or chew tobacco?: No Do you vape?: No Living arrangement: At home Relationship: Level: Independent Do you feel safe in your home environment?: Yes Suffered physical, verbal, emotional, or financial abuse?: No History of Abuse: No ETOH Use: Beer Frequency: Daily Number of Amount/day: 6 Substance Use: denies use POLST Patient has POLST: No Meds/Allgy Home Medications Ambulatory Orders Medication Instructions Recorded Confirmed vitamin E (dl, acetate) 450 mg 1,000 unit PO DAILY 01/0906/12/24 (1,000 unit) capsule glucosamine 500 mg-chondroit 400 1 cap PO DAILY 06/12/24 mg-vit C 2 mg-jose 0.33 mg capsule cholecalciferol (vitamin D3) 125 5,000 unit PO DAILY 0 06/08/24 06/12/24 mcg (5,000 unit) capsule multivitamin 1 tab PO DAILY 06/08/2405/27 Allergies Allergies Allergy/AdvReac Type Severity Reaction Status Date / Time No Known Drug Allergies Allergy Verified 10/14/24 14:47 Results Lab Results 10/14/24 14:36 10/14/24 14:36 Other Lab Results: Lab Results x24hrs 10/14/24 Range/Units 14:36 WBC 9.9 (4.8-10.8) x10^3/uL RBC 4.90 (4.70-6.10) 10^6/uL Hgb 16.5 (14.0-18.0) g/dL Hct 50.4 (42.0-52.0) % MCV 102.9 H (80.0-94.0) fL MCH 33.7 H (27.0-31.0) pg MCHC 32.7 (32.0-36.0) g/dL RDW 12.6 (12.0-15.0) % Plt Count 191 (130-450) 10^3/uL MPV 9.6 (7.4-11.4) fL Neut # (Auto) 6.7 H (1.5-6.6) 10^3/uL Lymph # (Auto) 2.0 (1.5-3.5) 10^3/uL [place] # (Auto) 1.1 H (0.0-1.0) 10^3/uL Eos # (Auto) 0.1 (0.0-0.7) 10^3/uL Baso # (Auto) 0.1 (0.0-0.1) 10^3/uL Absolute Nucleated RBC 0.00 x10^3/uL Nucleated RBC % 0.0 /100WBC Sodium 142 (135-145) mmol/L Potassium 3.6 (3.5-4.5) mmol/L Chloride 105 (101-111) mmol/L Carbon Dioxide 27 (21-32) mmol/L Anion Gap 10.0 (6-13) BUN 13 (6-20) mg/dL Creatinine 0.7 (0.6-1.3) mg/dL Estimated GFR (MDRD) 109 (>89) Glucose 120 H (74-104) mg/dL Calcium 9.2 (8.5-10.3) mg/dL Total Bilirubin 1.0 (0.2-1.0) mg/dL AST 35 (10-42) IU/L ALT 25 (10-60) IU/L Alkaline Phosphatase 44 (42-121) IU/L Troponin I High Sens 5.9 (2.3-19.7) ng/L Total Protein 7.1 (6.4-8.9) g/dL Albumin 4.3 (3.2-5.5) g/dL Globulin 2.8 (2.1-4.2) g/dL Albumin/Globulin Ratio 1.5 (1.0-2.2) Lipase 35 (11-82) U/L Review of Systems Status of ROS: 10 or more systems reviewed and unremarkable except as noted in history and below Exam Exam Vital Signs: Vital Signs x48h Temp Pulse Resp BP Pulse Ox O2 Flow Rate 10/14/24 15:16 89 20 137/92 H 100 8 10/14/24 15:01 96 22 163/110 H 100 15 10/14/24 14:50 15 10/14/24 14:50 116 H 30 H 163/110 H 95 15 10/14/24 14:47 36.1 C L 106 H 30 H 198/123 H 96 15 Constitutional normal general appearance and no apparent distress thin HENMT normocephalic and head/scalp atraumatic Eyes PERRL, EOMs intact bilaterally and no scleral icterus Neck/C-Spine trachea midline Chest anterior left chest tube. minimal air bubbles per pleural vac Gastrointestinal nondistended Neurology speech normal Psychiatry oriented x3, thought process normal, cooperative, affect normal and memory normal Impression/Plan Problem List (1) Recurrent spontaneous pneumothorax: Plan: transfer to [facility] offered per ED. he prefers chest tube and care at [facility] and will follow up with thoracic surgery as an out pt.
--- OUTSIDE RECORDS SUMMARY | 2024-10-14 15:56 | EXTERNAL MEDICAL SUMMARY RPT | Continuity of Care Document ---
Author Organization [facility] Address [address] [place] [id number] Phone Problems date description facility 2024-07-14 16:30 Lobar pneumonia, unspecified or ganism [facility] 2024-07-14 16:31 Lobar pneumonia, unspecified or ganism [facility] 2024-07-17 08:48 Lobar pneumonia, unspecified or ganism [facility] 2024-07-18 00:02 Lobar pneumonia, unspecified or ganism [facility] Results/Labs test date facility value unit notes Result panel 1 NUCLEATED RED BLOOD CELLS AUTO 2024-10-14 14:36 [facility] 0.0 /100wbc (missing) NRBC ABSOLUTE COUNT (AUTO) 2024-10-14 14:36 [facility] 0.00 x10 3/ul (missing) BASOPHILS # (AUTO) 2024-10-14 14:36 [facility] 0.1 10 3/ul (missing) EOSINOPHILS # (AUTO) 2024-10-14 14:36 [facility] 0.1 10 3/ul (missing) CREATININE 2024-10-14 14:36 [facility] 0.7 mg/dl As of October 2022 testing method has changed, this may include reference ranges. BILIRUBIN,TOTAL 2024-10-14 14:36 [facility] 1.0 mg /dl As of October 2022 testing method has changed, this may include reference ranges. MONOCYTES # (AUTO) 2024-10-14 14:36 [facility] 1.1 10 3/ul (missing) ALBUMIN/GLOBULIN RATIO 2024-10-14 14:36 [facility] 1.5 (missing) (missing) ANION GAP 2024-10-14 14:36 [facility] 10.0 (missing ) (missing) MEAN CORPUSCULAR VOLUME 2024-10-14 14:36 [facility] 102.9 fl (missing) CHLORIDE 2024-10-14 14:36 [facility] 105 mmol/l As of October 2022 testing method has changed, this may include reference ranges. GFR - MDRD 2024-10-14 14:36 [facility] 109 (alejandro meyer) Social History date description facility
[2024-10-14] MEDS: SODIUM CHLORIDE FLUSH 0.9% 10 ML SYRINGE IVP SCH (17:13)
[2024-10-14] MEDS: IBUPROFEN 400 MG TABLET PO PRN (18:17)
--- NOTE | 2024-10-15 10:21 | PHARMACY PROGRESS NOTE ---
Best Possible Medication History Admit Date and Time: 10/14/24 [id number] Home Medications Medication Instructions Recorded Confirmed Type vitamin E (dl, acetate) 450 mg 1,000 unit PO DAILY 01/0910/15/24 History (1,000 unit) capsule glucosamine 500 mg-chondroit 400 1 cap PO DAILY 10/15/24 History mg-vit C 2 mg-jose 0.33 mg capsule cholecalciferol (vitamin D3) 125 5,000 unit PO DAILY 0 06/08/24 10/15/24 History mcg (5,000 unit) capsule multivitamin 1 tab PO DAILY 06/08/2409/25 History Processed by: Pharmacy Medications reviewed in ED?: No Medication History completed: Yes Patient Interview: Pt interview ONLY source [facility] Statement: As the person ultimately responsible for medication therapy, providers are able to order a medication from an existing home medication list in [facility] via the "Reconcile Routine" prior to Confirmation of that medication by technical support consultant. Such practice is discouraged except when the physician, in their clinical judgment, deems that a medical need exists for a medication without regard to previous use.
--- NOTE | 2024-10-15 13:56 | PROVIDER PROGRESS NOTE ---
Subjective Subjective Pt reports feeling: Improved Current Medications Current Medications Current Medications: Current Medications Generic Name Dose Route Start Last Admin Trade Name Freq PRN Reason Stop Dose Admin Acetaminophen 650 mg 10/14/24 15:47 Acetaminophen 325 Mg Tablet PO Q4HR PRN Pain 1 to 4, or Fever Ibuprofen 400 mg 10/14/24 15:47 10/14/24 18:17 Ibuprofen 400 Mg Tablet PO 400 mg Q4HR PRN Administration Pain 1 to 4 Oxycodone HCl 5 mg 10/14/24 15:47 Oxycodone 5 Mg Tablet PO Q4HR PRN Pain 5 to 7 Sodium Chloride 10 ml 10/14/24 15:47 Sodium Chloride Flush 0.9% 10 Ml Syringe IVP PRN PRN NEEDED PER PROVIDER ORDERS Sodium Chloride 10 ml 10/14/24 17:00 10/15/24 08:58 Sodium Chloride Flush 0.9% 10 Ml Syringe IVP 10 ml 0100,0900,1700 ANGEL Administration Zolpidem Tartrate 5 mg 10/14/24 15:47 Zolpidem 5 Mg Tablet PO QPM PRN Insomnia Objective Vital Signs/Intake & Output Reviewed Vital Signs: Yes Vital Signs: Vital Signs x48h Temp Pulse Resp BP Pulse Ox 10/15/24 08:41 36.5 C 54 L 10 L 141/70 H 96 Intake & Output: Intake & Output 10/12/24 10/13/24 10/14/24 10/15/24 23:59 23:59 23:59 23:59 Intake Total 120 / 120 580 / 580 Output Total 100 / 100 100 / 100 Balance 480 / 480 Weight (kg) 58.5 kg Objective General Appearance: positive No acute distress and Alert Eyes Bilateral: positive PERRL, EOMI and No scleral icterus Respiratory: positive No respiratory distress Abdomen: positive No distention Neurologic/Psychiatric: positive Oriented x3 Lab Results 10/14/24 14:36 10/14/24 14:36 Other Labs: Lab Results x24hrs 10/14/24 Range/Units 14:36 WBC 9.9 (4.8-10.8) x10^3/uL RBC 4.90 (4.70-6.10) 10^6/uL Hgb 16.5 (14.0-18.0) g/dL Hct 50.4 (42.0-52.0) % MCV 102.9 H (80.0-94.0) fL MCH 33.7 H (27.0-31.0) pg MCHC 32.7 (32.0-36.0) g/dL RDW 12.6 (12.0-15.0) % Plt Count 191 (130-450) 10^3/uL MPV 9.6 (7.4-11.4) fL Neut # (Auto) 6.7 H (1.5-6.6) 10^3/uL Lymph # (Auto) 2.0 (1.5-3.5) 10^3/uL [place] # (Auto) 1.1 H (0.0-1.0) 10^3/uL Eos # (Auto) 0.1 (0.0-0.7) 10^3/uL Baso # (Auto) 0.1 (0.0-0.1) 10^3/uL Absolute Nucleated RBC 0.00 x10^3/uL Nucleated RBC % 0.0 /100WBC Sodium 142 (135-145) mmol/L Potassium 3.6 (3.5-4.5) mmol/L Chloride 105 (101-111) mmol/L Carbon Dioxide 27 (21-32) mmol/L Anion Gap 10.0 (6-13) BUN 13 (6-20) mg/dL Creatinine 0.7 (0.6-1.3) mg/dL Estimated GFR (MDRD) 109 (>89) Glucose 120 H (74-104) mg/dL Calcium 9.2 (8.5-10.3) mg/dL Total Bilirubin 1.0 (0.2-1.0) mg/dL AST 35 (10-42) IU/L ALT 25 (10-60) IU/L Alkaline Phosphatase 44 (42-121) IU/L Troponin I High Sens 5.9 (2.3-19.7) ng/L Total Protein 7.1 (6.4-8.9) g/dL Albumin 4.3 (3.2-5.5) g/dL Globulin 2.8 (2.1-4.2) g/dL Albumin/Globulin Ratio 1.5 (1.0-2.2) Lipase 35 (11-82) U/L Assessment/Plan Problem List (1) Recurrent spontaneous pneumothorax: Impression: he had acute onset complete collapse of his left lung yesterday by symptoms. he states he felt it happen with heavy lifting. plan ct off suction as tolerated today. plan replace to suction if he develops shortness of breath. cxr in am. possibly home tomorrow with or without ct. he has gone home with a ct in the past. he plans on calling thoracic surgery for a follow up appt to schedule surgery.
--- NOTE | 2024-10-16 07:31 | XRAY Report ---
PROCEDURE: XR Chest 1V INDICATIONS: ptx TECHNIQUE: One view of the chest was acquired. COMPARISON: 10/14/2024 FINDINGS AND IMPRESSION: Left chest tube is seen. There is no significant pneumothorax on radiography. No dense airspace disease or pleural effusion on this single view study. Normal heart size. Degenerative osseous changes. Reviewed by: Pk Guerra MD on 10/16/2024 7:30 AM PDT Approved by: Pk Guerra MD on 10/16/2024 7:30 AM PDT Station ID: [id number]
--- NOTE | 2024-10-16 07:43 | PROVIDER PROGRESS NOTE ---
Subjective General Admit Date: 10/14/24 Other Other Information/Narrative: Off suction yesterday. Lung remains inflated on CXR this AM. Using no pain medications. On RA, pulling >2L on IS. HDN/AF. Eating and voiding as per baseline. Doing great. Review of Systems Status of ROS: 10 or more systems reviewed and unremarkable except as noted in history and below Exam Exam Vital Signs: Vital Signs x48h Temp Pulse Resp BP Pulse Ox 10/15/24 23:50 36.6 C 67 18 139/92 H 95 Constitutional normal general appearance, no apparent distress and average body habitus Chest anterior left chest tube off suction Respiratory breath sounds equal bilaterally and normal respiratory effort Cardiovascular normal heart rate noted Gastrointestinal abdomen normal to inspection Extremities normal to inspection Neurology speech normal and GCS 15 Psychiatry oriented x3, thought process normal, cooperative, affect normal and memory normal Skin skin color normal Image EXAM: [id number] ([id number]) PROCEDURE: XR Chest 1V INDICATIONS: ptx TECHNIQUE: One view of the chest was acquired. COMPARISON: 10/14/2024 FINDINGS AND IMPRESSION: Left chest tube is seen. There is no significant pneumothorax on radiography. No dense airspace disease or pleural effusion on this single view study. Normal heart size. Degenerative osseous changes. Reviewed by: Pk Guerra MD on 10/16/2024 7:30 AM PDT Impression/Plan Problem List (1) Recurrent spontaneous pneumothorax: Plan: 79M admitted on 10/14/24 with third spontaneous LEFT pneumothorax in last 6 months (admissions 03/2024, 05/2024, and now). PTX resolved with anterior Thora- vent decompression, and stable today off suction. - DC home with catheter as he has done the last 2 times. F/u with me in 1 week for CXR and removal. - Seen by Dr. Scarlett Beckham, thoracic surgeon, in . Elective VATS blebectomy/pleurodesis recommended; plan was for patient to call office and schedule once his 's health had improved. His is now home from that hospitalization, weaned off dialysis and dialysis catheter removed. He is ready to proceed with surgery. I called Dr. Beckham' office ([phone]) and provided and update re: repeat hospitalization and readiness to proceed with surgery; they will call him to schedule. - Messaged my office staff to have all CXR and CT Chest images from [id number] sent to Dr. Beckham, as requested in her consult note. Lucie Lawrence DO, FACS General Surgeon, [facility]
[2024-10-16 12:26] VITALS: BP 138/88; TEMP 97.5; O2SAT 97
--- NOTE | 2024-10-16 18:12 | Discharge Summary ---
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 he has seen [facility] thoracic surgery. has not had surgery . chest tube placed per ED. complaint of mild ct pain CONSULTS | PROCEDURES Consultations: none Procedures: left anterior chest thoravent placement HOSPITAL COURSE Hospital Course: 79M presented to ED with third recurrent spontaneous LEFT pneumothorax in last 6 months (admissions 03/2024, 05/2024, and now). Anterior Thora-vent placed for decompression of left chest, which resulted in resolution of pneumothorax. Admitted for management, kept to suction x24 hours then off suction 24hrs, and lung remained inflated. Pain resolved, no respiratory compromise. HD stable, afebrile, eating/voiding/ambulating at baseline. DC home with thoravent in place as he has done the last 2 times. Will F/u with me in 1 week for CXR and removal. I spoke to the office of Dr. Scarlett Beckham, established thoracic surgeon. They will call him to schedule elective VATS blebectomy/pleurodesis, now that his 's health is improved and he has had another recurrence. My office staff will have all CXR and CT Chest images from [id number] sent to Dr. Beckham, as requested in her consult note. ALLERGIES Allergies Allergy/AdvReac Type Severity Reaction Status Date / Time No Known Drug Allergies Allergy Verified 10/14/24 14:47 MEDICATIONS Ambulatory Orders Medication Instructions Recorded Confirmed vitamin E (dl, acetate) 450 mg 1,000 unit PO DAILY 01/0910/15/24 (1,000 unit) capsule glucosamine 500 mg-chondroit 400 1 cap PO DAILY 10/15/24 mg-vit C 2 mg-jose 0.33 mg capsule cholecalciferol (vitamin D3) 125 5,000 unit PO DAILY 0 06/08/24 10/15/24 mcg (5,000 unit) capsule multivitamin 1 tab PO DAILY 06/08/2409/25 PHYSICAL EXAM AT DISCHARGE Vital Signs: Vital Signs x48h Temp Pulse Resp BP Pulse Ox 10/16/24 12:23 36.4 C L 72 24 138/88 H 97 General Appearance: positive No acute distress Respiratory: positive No respiratory distress, Breath sounds nml and Other (left anterior thora-vent in place) Cardiovascular: positive Regular rate & rhythm Abdomen: positive Non-tender and No distention Skin: positive Color nml Extremities: positive Non-tender and Nml appearance Neurologic/Psychiatric: positive Oriented x3 LABS 10/14/24 14:36 10/14/24 14:36 DIAGNOSTIC IMAGING Diagnostic Imaging Results Comments: EXAM: [id number] ([id number]) PROCEDURE: XR Chest 1V INDICATIONS: Chest pain TECHNIQUE: One view of the chest was acquired. COMPARISON: None. FINDINGS: Surgical changes and devices: None. Lungs and pleura: There is a large left pneumothorax with near complete collapse of the left lung. The right lung is normally inflated and clear without consolidation or effusion. Mediastinum: Mediastinal contours appear normal. Heart size is normal. Bones and chest wall: No suspicious bony lesions. Overlying soft tissues appear unremarkable. IMPRESSION: Left pneumothorax with near complete collapse of the left lung. The ordering provider was not notified of this result as the plan for chest tube placement is already documented. Reviewed by: Monse Roberts MD on 10/14/2024 2:08 PM AKDT Approved by: Monse Roberts MD on 10/14/2024 2:08 PM AKDT PROCEDURE: XR Chest 1V INDICATIONS: post chest pegtail TECHNIQUE: One view of the chest was acquired. COMPARISON: Same day chest radiograph.. FINDINGS: Surgical changes and devices: There is been interval placement of a left thoracic smallbore chest tube at the lateral mid thorax. Lungs and pleura: There is no significant residual pneumothorax. Mild residual left basilar atelectasis. Mediastinum: Mediastinal contours appear normal. Heart size is normal. Bones and chest wall: No suspicious bony lesions. Overlying soft tissues appear unremarkable. IMPRESSION: No significant residual left pneumothorax status post chest tube placement. Reviewed by: Monse Roberts MD on 10/14/2024 2:47 PM AKDT Approved by: Monse Roberts MD on 10/14/2024 2:47 PM AKDT PROCEDURE: XR Chest 1V INDICATIONS: ptx TECHNIQUE: One view of the chest was acquired. COMPARISON: 10/14/2024 FINDINGS AND IMPRESSION: Left chest tube is seen. There is no significant pneumothorax on radiography. No dense airspace disease or pleural effusion on this single view study. Normal heart size. Degenerative osseous changes. Reviewed by: Pk Guerra MD on 10/16/2024 7:30 AM PDT Approved by: Pk Guerra MD on 10/16/2024 7:30 AM PDT FOLLOW UP Follow Up: Dr. Lawrence in [address] Beckham for surgery TIME SPENT Time Spent in Discharge (Minutes): 60 Discharge Plan Discharge Patient Disposition: Home, Self Care Condition: Good Medically Cleared Date:: 10/16/24 Prescriptions: Continued vitamin E (dl, acetate) 1,000 UNIT capsule 1,000 unit PO DAILY [id number]-manganese 500-400-2-0.33 mg capsule 1 cap PO DAILY cholecalciferol (vitamin D3) 125 mcg (5,000 unit) capsule 5,000 unit PO DAILY multivitamin Tablet 1 tab PO DAILY Activity Restrictions: Activity as Tolerated Activity Restrictions/Additional Instructions: NO flying/scuba diving. Diet: Regular Care Plan Goals: - Follow up in General Surgery clinic in 1 week for removal of chest tube (clinic will call you to schedule) - Follow up with Dr. Scarlett Beckham @ [facility] to schedule surgery (their clinic will call you to schedule: [phone]) Print Language: [place] Patient Instructions: Pneumothorax (Collapsed Lung) Stand Alone Forms: PCP List"
== END 2024-10-16 12:10 | disposition home or self-care (01) | DRG 201 ==
LOC: ED 14:30 → MS2 15:52
PROVIDERS: ADMIT Surgery; ATTEND Surgery
DX: Z87.891 Personal history of nicotine dependence; J44.9 Chronic obstructive pulmonary disease, unspecified; J93.83 Other pneumothorax; Z79.899 Other long term (current) drug therapy; J43.9 Emphysema, unspecified